=== PATIENT | female | born 1995 | race African-American/Black ===

== ENCOUNTER 2021-01-18 12:42 | Emergency (ER) | payer MEDICAID, OTHER ==
[~2021-01-18] VITALS: Ht 165.1 cm; Wt 79.0 kg
[2021-01-18 15:10] VITALS: BP 122/88
== END 2021-01-18 15:12 | disposition left against medical advice (07) ==
LOC: ER 12:42
DX: Z53.21 Procedure and treatment not carried out due to patient leaving prior to being seen by health care provider (principal)